=== PATIENT | female | born 1970 ===

== ENCOUNTER 2025-04-28 07:45 | Inpatient (IN) | payer OTHER ==
[~2025-04-28] VITALS: Ht 162.6 cm; Wt 103.4 kg
[2025-04-28 09:26] LABS: BASO % 0.4 % (0.1-1.2); EOS # 0.33 (0.04-0.54); EOS % 3.2 % (0.7-7.0); LYMPH # 2.78 (1.18-3.74); LYMPH % 26.9 % (19.3-53.1); MEAN PLATELET VOLUME 9.80 fl (9.4-12.4); MONO # 0.63 (0.24-0.82); MONO % 6.1 % (4.7-12.5); NEUT # 6.52 (1.56-6.13); NEUT % 63.1 % (34.0-71.1); RED CELL DISTRIBUTION WIDTH 14.1 % (11.6-14.4)
[2025-04-28 09:27] LABS: URINE APPEARANCE Clear; URINE BILIRRUBIN Negative (NEGATIVE); URINE BLOOD Negative; URINE COLOR Yellow; URINE GLUCOSE Negative (NEGATIVE); URINE KETONE Negative (NEGATIVE); URINE LEUKOCYTE Trace; URINE NITRATE Negative; URINE PROTEIN Negative (NEGATIVE); URINE UROBILINOGEN 0.2 E.U./dl
[2025-04-28 09:29] LABS: URINE BACTERIA 1477.0 uL (0.0-1933); URINE EPITHELIAL CELLS 15.0 uL (0.0-38.8); URINE RBC 7.9 uL (0.0-20.8); URINE WBC 32.4 uL (0.0-23.2)
[2025-04-28 09:31] LABS: URINE CAST 0.14 uL (0.0-1.40)
[2025-04-28 09:44] LABS: INR 1.02
[2025-04-28] MEDS ORDERED: VASOTEC20 M1 PO (09:52)
[2025-04-28] MEDS ORDERED: LASIX40 MG PO (09:52)
[2025-04-28] MEDS ORDERED: BREO ELLIPTA 21 EACH IH (09:53)
[2025-04-28] MEDS ORDERED: PROAIR RESPICL90 MCG IH (09:53)
[2025-04-28 09:54] VITALS: BP 129/85
[2025-04-28 10:15] LABS: ALT/SGPT 35.0 U/L (12-78); AST/SGOT 14.0 U/L (15-37); BILIRUBIN TOTAL 0.47 mg/dL (0.3-1.2); BUN CREA RATIO 27.0 (7.0-25.0); CREATININE SERUM 0.79 mg/dL (0.55-1.02); GFR 75.56; GLOBULINA 3.5 G/DL (2.4-3.5); GLUCOSE FASTING 114.0 mg/dL (65-100); OSMOLALITY SERUM 285.0 MOSM/KG (275-295)
[2025-05-08] MEDS ORDERED: DEXAMETHASONE SODIUM PHOSPHATE 4 MG/ML VIAL IV ONE (08:30)
[2025-05-08] MEDS ORDERED: CEFAZOLIN SODIUM 1,000 MG VIAL IV ONE (08:30)
[2025-05-08] MEDS ORDERED: DEXTROSE 50 % IN WATER 0.5 G/ML VIAL IV PRN (10:15)
[2025-05-08] MEDS ORDERED: ENALAPRILAT DIHYDRATE 1.25 MG/ML VIAL IV PRN (10:15)
[2025-05-08] MEDS ORDERED: ONDANSETRON HCL 2 MG/ML VIAL IV PRN (10:15)
[2025-05-08] MEDS ORDERED: INSULIN LISPRO 1,000 UNIT/10 ML UNITS SUBCUTANEO PRN (10:15)
[2025-05-08 13:50] VITALS: BP 169/105; O2SAT 97
[2025-05-08] MEDS ORDERED: TRAMADOL HCL 50 MG TABLET PO SCH (17:00)
[2025-05-08] MEDS ORDERED: Calcium Carbonate 1 TAB TABLET PO SCH ×2 (17:00→21:00)
[2025-05-08] MEDS ORDERED: DIPHENHYDRAMINE HCL 75 MG,LIDOCAINE HCL 30 ML,MAG HYDROX/ALUMINUM HYD/SIMETH 30 ML PO SCH (17:00)
[2025-05-08] MEDS ORDERED: CALCITRIOL 0.5 MCG CAPSULE PO SCH (17:00)
[2025-05-08] MEDS ORDERED: CYCLOBENZAPRINE HCL 5 MG TABLET PO SCH (17:00)
[2025-05-08] MEDS ORDERED: ACETAMINOPHEN 500 MG GEL..CAP PO SCH (17:00)
[2025-05-08 17:59] VITALS: BP 166/79; O2SAT 95
[2025-05-09] MEDS ORDERED: LEVOTHYROXINE SODIUM 150 MCG TABLET PO SCH (06:00)
[2025-05-09] MEDS ORDERED: ENALAPRIL MALEATE 20 MG TABLET PO SCH (09:00)
== END 2025-05-09 13:49 | disposition home or self-care (01) | DRG 627 ==
LOC: O/R 05-08 06:00 → SURH 05-08 07:45 → SURG 05-08 14:27
PROVIDERS: ADMIT Surgery; ATTEND Surgery
PROC: 0GTK0ZZ Resection of Thyroid Gland, Open Approach (ICD-10-PCS; principal; 2025-05-08 13:30)
DX: C73 Malignant neoplasm of thyroid gland (principal)